=== PATIENT | female | born 1975 | race Native Hawaiian/Other Pacific Islander ===

== ENCOUNTER 2016-09-26 21:39 | Inpatient (IN) | payer MEDICAID ==
[2016-09-26] MEDS ORDERED: SUBLIMAZE IV PRN (22:21)
[2016-09-26] MEDS ORDERED: CERVIDIL VG ONE (22:21)
[2016-09-26 22:50] LABS: Hematocrit 34.3 % (30.3-42.9); Hemoglobin 11.3 gm/dl (10.1-14.3); Mean Corpuscular HGB Conc 33 % (30-34); Mean Corpuscular Volume 76 fl (79-97); Platelet Count 184 K/mm3 (140-440); Red Blood Count 4.52 M/mm3 (3.65-5.03); Red Cell Distribution Width 17.4 % (13.2-15.2); White Blood Count 10.2 K/mm3 (4.5-11.0)
[2016-09-26 22:56] LABS: Mean Corpuscular Hemoglobin 25 pg (28-32)
[2016-09-26] MEDS: LACTATED RINGERS 1,000 ML IV SCH (22:58)
[2016-09-27] MEDS: LACTATED RINGERS 1,000 ML IV SCH ×2 (03:04→07:50)
[2016-09-27] MEDS ORDERED: PITOCin/NS 30 UNIT/500ML 30 UNITS/500 ML BAG IV ONE (03:10)
[2016-09-27] MEDS ORDERED: PITOCin 20 UNIT in NACL 0.9% 1000 ML 1,000 ML IV SCH (04:00)
--- NOTE | 2016-09-27 08:36 | History and Physical Report ---
History of Present Illness Date of examination: 09/27/16 Date of admission: 09/26/16 21:39 History of present illness: 41 yo LMP EDC 09/17/16 @ 41.3 weeks gestation, admitted for induction secondary to post dates. Second trimeter entry into care at 19 weeks gestation. course complicated by second trimester vaginal bleeding. Fundal placenta documented. AMA with [facility] comang't and NL NIPT and +CT with treatment and negative SHARON. GBS status unknown. Will request and treat as needed. 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 Family/Genetic History: none Social history: no significant social history - Obstetrical History Expected Date of Delivery: 09/17/16 Actual Gestation: 41 Week(s) 3 Day(s) : 6 Para: 4 Hx # Term Pregnancies: 4 Spontaneous Abortions: 1 (ectopic) Number of Living Children: 4 Medications and Allergies Allergies Allergy/AdvReac Type Severity Reaction Status Date / Time No Known Allergies Allergy Verified 06/22/16 14:40 Home Medications Medication Instructions Recorded Confirmed Last Taken Type No Known Home Medications [No 09/26/16 09/26/16 Unknown History Reported Home Medications] Active Meds: Active Medications Fentanyl (Sublimaze) 100 mcg IV Q2H PRN PRN Reason: Labor Pain Lactated Ringer's (Lactated Ringers) 1,000 mls @ 125 mls/hr IV DIRECT CATINA Last Admin: 09/27/16 07:50 Dose: 125 mls/hr Oxytocin 20 unit/ Sodium (Chloride) 1,002 mls @ 0 mls/hr IV DIRECT CATINA PRN Reason: As Directed Oxytocin/Sodium Chloride (Pitocin/Ns 30 Unit/500ml) 30 units in 500 mls @ 2 mls /hr IV TITR CATINA PRN Reason: Protocol Review of Systems All systems: negative Eyes: deferred Ears, nose, mouth and throat: deferred Breasts: deferred Genitourinary: normal appearance Rectal Exam: deferred Integumentary: deferred - Vital Signs Vital signs: Vital Signs Pulse BP Pulse Ox 87 123/66 96 09/26/16 22:14 09/26/16 22:14 09/26/16 22:14 Temp Pulse Resp BP Pulse Ox 96.8 F L 100 H 16 103/59 99 09/27/16 07:04 09/27/16 08:22 09/27/16 07:04 09/27/16 07:19 09/27/16 08:22 - Physical Exam Breasts: Positive: deferred Cardiovascular: Regular rate Abdomen: Positive: normal appearance, soft Genitourinary (Female): Positive: normal external genitalia, normal perenium, perineal/vulvar lesions Vulva: both: normal Vagina: Positive: normal moisture - Obstetrical FHR: category 1 Uterine Contraction Monitor Mode: External Cervical Dilatation: 3 Cervical Effacement Percentage: 80 station: -3 Uterine Contraction Frequency (min): 1-3 Uterine Contraction Duration: 40-60 Uterine Contraction Pattern: Regular Uterine Tone Measurement Phase: Resting Uterine Contraction Intensity: Moderate Results Result Diagrams: 09/26/16 22:35 Abnormal lab results 09/26/16 Range/Units 22:35 MCV 76 L (79-97) fl MCH 25 L (28-32) pg RDW 17.4 H (13.2-15.2) % All other labs normal. Assessment and Plan O: EFW: 9lbs A: IUP at 41.3 weeks gestation Latent labor Unknown GBS status Postdates induction P: Obtain GBS status Active richie't
[2016-09-27] MEDS ORDERED: LACTATED RINGERS 1,000 ML IV SCH (09:00)
[2016-09-27] MEDS: PITOCin/NS 30 UNIT/500ML 30 UNITS/500 ML BAG IV SCH ×3 (09:01→12:13)
[2016-09-27] MEDS ORDERED: PITOCin/NS 20 UNIT/1000ML DRIP 20,000 MILLIUNITS/1,000 ML BAG IV ONE (09:05)
[2016-09-27] MEDS ORDERED: STADOL IV PRN (09:30)
[2016-09-27] MEDS ORDERED: PITOCin/NS 20 UNIT/1000ML DRIP 20 UNITS/1,000 ML BAG IV SCH (09:30)
[2016-09-27] MEDS ORDERED: XYLOCAINE 2% INFILTRATI ONE (09:30)
[2016-09-27] MEDS ORDERED: ePHEDrine SULFATE IV PRN (09:30)
[2016-09-27] MEDS ORDERED: BRETHINE IVP PRN (09:30)
[2016-09-27] MEDS ORDERED: BRETHINE SUB-Q PRN (09:30)
[2016-09-27] MEDS ORDERED: MINERAL OIL PO PRN (10:00)
[2016-09-27] MEDS ORDERED: POLYCILLIN/NS 2 GM/100 ML 2 GM/100 ML BAG IV ONE (10:00)
[2016-09-27] MEDS ORDERED: fentaNYL-BUPIV 2 MCG/ML-0.125% 200 MCG/100 ML BAG EPIDURAL ONE (11:14)
[2016-09-27] MEDS ORDERED: NARCAN 2 MG/2 ML IV PRN (12:04)
--- NOTE | 2016-09-27 12:04 | Anesthesia Consultation ---
Anesthesia Consult and Med Hx Date of service: 09/27/16 - Airway Anesthetic Teeth Evaluation: Good ROM Head & Neck: Adequate Mental/Hyoid Distance: Adequate Mallampati Class: Class II Intubation Access Assessment: Probably Good - Pre-Operative Health Status ASA Pre-Surgery Classification: ASA2, Emergency Proposed Anesthetic Plan: Epidural, Spinal - Pulmonary Hx Asthma: No COPD: No Hx Pneumonia: No - Cardiovascular System Hx Hypertension: No - Central Nervous System Hx Seizures: No Hx Psychiatric Problems: No - Endocrine Hx Renal Disease: No Hx End Stage Renal Disease: No Hx Hypothyroidism: No Hx Hyperthyroidism: No - Hematic Hx Anemia: No Hx Sickle Cell Disease: No - Other Systems Hx Alcohol Use: No
[2016-09-27] MEDS ORDERED: fentaNYL-BUPIV 2 MCG/ML-0.125% 200 MCG/100 ML BAG EPIDURAL SCH (13:00)
[2016-09-27] MEDS ORDERED: POLYCILLIN/NS 1 GM/50 ML 1 GM/50 ML BAG IV SCH (14:00)
--- NOTE | 2016-09-27 14:06 | Procedure Note ---
OB Delivery Note - Delivery Date of Delivery: 09/27/16 (8lb male @ 1349) Surgeon: ROSANA VICENTE Estimated blood loss: <100cc - Vaginal Delivery presentation: vertex Delivery position: OA Intrapartum events: none, mult.variable deceleratio Delivery induction: cervidil Delivery augmentation: rupture of membranes, pitocin Delivery monitor: external FHT, internal FHT Route of delivery: Delivery placenta: spontaneous Delivery cord: 3 umbilical vessels Episiotomy: none Delivery laceration: other (vaginal skid camilla, pressure applied for hemostatis) Anesthesia: epidural - Infant A at 1 minute: 8 at 5 minutes: 9 Gender: Male (Progressed rapidly for of viable male. Infant stimulated to cry, bulb suctioned, place skin to skin. NICU @ for varible decels. [address] Pitocin off. on stand by for delivery. Spont. placenta. Cord blood collected. Laceration as noted. Mother and stable and bonding.)
[2016-09-27] MEDS ORDERED: BENADRYL PO PRN (14:08)
[2016-09-27] MEDS ORDERED: LANSINOH TP PRN (14:08)
[2016-09-27] MEDS ORDERED: PHENERGAN PR PRN (14:08)
[2016-09-27] MEDS ORDERED: TYLENOL PO PRN (14:08)
[2016-09-27] MEDS ORDERED: DULCOLAX PR PRN (14:08)
[2016-09-27] MEDS ORDERED: NORCO 5/325 PO PRN (14:08)
[2016-09-27] MEDS ORDERED: TUCKS PAD TP PRN (14:08)
[2016-09-27] MEDS ORDERED: ZOFRAN IV PRN (14:08)
[2016-09-27] MEDS ORDERED: DERMOPLAST TP PRN (14:08)
[2016-09-27] MEDS ORDERED: MILK OF MAGNESIA PO PRN (14:08)
[2016-09-27] MEDS ORDERED: SODIUM CHLORIDE FLUSH SYRINGE 10 ML IV NR (15:00)
[2016-09-27] MEDS ORDERED: MOTRIN PO SCH (15:00)
[2016-09-27] MEDS: MOTRIN PO SCH (23:48)
[2016-09-28 03:04] LABS: Hematocrit 30.6 % (30.3-42.9)
[2016-09-28] MEDS: MOTRIN PO SCH ×2 (05:41→12:48)
[2016-09-28] MEDS ORDERED: BOOSTRIX IM ONE (06:00)
[2016-09-28] MEDS ORDERED: M-M-R II VACCINE SUB-Q ONE (06:00)
[2016-09-28] MEDS: PRENATAL VITAMIN PO SCH (11:00)
--- NOTE | 2016-09-28 12:26 | Progress Note ---
Assessment and Plan A: PPD#1 s/p P: Routine care. Discharge today per pt request. Subjective - Subjective Date of service: 09/28/16 Principal diagnosis: s/p at term Patient reports: appetite normal, voiding normally, ambulating normally : doing well, bottle feeding Objective - Vital Signs Latest vital signs: Vital Signs Temp Pulse Pulse Resp BP BP Pulse Ox 09/28/16 08:10 98.4 F 62 20 95/47 09/28/16 00:35 98.3 F 87 18 99/61 09/27/16 21:20 99.3 F 94 H 18 101/69 09/27/16 16:00 98.5 F 81 16 120/72 09/27/16 15:18 86 99/57 09/27/16 15:13 86 95/53 09/27/16 15:08 97 H 111/55 09/27/16 15:02 85 121/61 09/27/16 14:58 90 118/60 09/27/16 14:53 100 H 113/55 09/27/16 14:47 93 H 115/61 09/27/16 14:42 88 116/62 09/27/16 14:38 85 114/58 09/27/16 14:33 94 H 123/56 09/27/16 14:28 91 H 122/52 09/27/16 14:23 87 127/53 09/27/16 14:18 88 113/61 09/27/16 14:13 95 H 103/59 09/27/16 14:08 98 H 129/56 09/27/16 14:03 103 H 106/56 09/27/16 13:58 100 H 115/54 09/27/16 13:53 103 H 109/51 09/27/16 13:51 108 H 135/62 09/27/16 13:47 95 H 71 L 09/27/16 13:45 139 H 139/67 09/27/16 13:42 121 H 100 09/27/16 13:39 109 H 84 09/27/16 13:37 107 H 135/79 09/27/16 13:36 105 H 100 09/27/16 13:33 105 H 132/76 09/27/16 13:31 105 H 100 09/27/16 13:28 88 119/73 09/27/16 13:26 88 100 09/27/16 13:22 93 H 114/68 09/27/16 13:21 85 100 09/27/16 13:17 87 112/71 09/27/16 13:16 93 H 100 09/27/16 13:13 100 H 107/68 09/27/16 13:11 89 100 09/27/16 13:08 90 115/66 09/27/16 13:06 89 100 09/27/16 13:02 100 H 107/71 09/27/16 13:01 91 H 100 09/27/16 12:57 96 H 115/73 09/27/16 12:56 95 H 100 09/27/16 12:52 93 H 118/74 09/27/16 12:51 98 H 100 09/27/16 12:47 107 H 113/75 09/27/16 12:46 97 H 100 09/27/16 12:43 97 H 111/70 09/27/16 12:41 101 H 100 09/27/16 12:38 93 H 120/66 09/27/16 12:36 95 H 100 09/27/16 12:32 99 H 111/63 09/27/16 12:31 96 H 96 09/27/16 12:27 83 114/60 09/27/16 12:25 91 H 96 09/27/16 12:23 90 118/60 09/27/16 12:20 91 H 98 09/27/16 12:18 88 122/72 09/27/16 12:16 94 H 94 09/27/16 12:14 99 H 112/65 94 Intake and Output 09/27/16 09/28/16 09/28/16 22:59 06:59 14:59 Intake Total 240 360 Output Total 400 Balance -160 360 Intake: Oral 240 360 Output: Urine 400 Void 400 Other: Total, Intake Amount 240 120 Total, Output Amount 400 # Voids Void 1 1 - Exam Breasts: Present: deferred Cardiovascular: Present: Regular rate Lungs: Present: Clear to auscultation Abdomen: Present: soft Extremities: Present: normal - Labs Labs: Abnormal lab results 09/28/16 Range/Units 02:39 Hgb 10.0 L (10.1-14.3) gm/dl
--- NOTE | 2016-09-28 12:42 | Discharge Summary ---
Providers - Providers Date of Admission: 09/26/16 21:39 Date of discharge: 09/28/16 Attending physician: VERÓNICA MI MD Primary care physician: VERÓNICA MI MD Hospitalization Reason for admission: induction of labor Delivery: Procedure details: Spontaneous vaginal delivery; Please see delivery note. Episiotomy: none Laceration: none Other procedures: none complications: none Discharge diagnosis: IUP at term delivered [place] baby: male Hospital course: Pt underwent induction of labor and spontaneous vaginal delivery which she tolerated well. She met discharge criteria on PPD#1. Condition at discharge: Stable Disposition: DISCHARGED TO HOME OR SELFCARE - Discharge Diagnoses (1) Term of male Status: Acute (2) Obesity Status: Acute Qualifiers: Obesity type: due to excess calories Obesity severity: non-morbid Qualified Code(s): E66.09 - Other obesity due to excess calories (3) Anemia affecting Status: Acute Plan - Discharge Medications Prescriptions: Ferrous Sulfate [Feosol 325 MG tab] 325 mg PO BID #60 tablet HYDROcodone/APAP 5-325 [Plains 5/325] 1 each PO Q6HR PRN #30 tablet PRN Reason: Pain Ibuprofen [Motrin] 800 mg PO Q8HR PRN #30 tablet PRN Reason: Pain Vit-Fe Fumar-FA [ Vitamin] 1 tab PO QDAY #30 tablet - Provider Discharge Summary Activity: routine, no sex for 6 weeks, no heavy lifting 4 weeks, no strenuous exercise Diet: routine Instructions: routine Additional instructions: [] Smoking cessation referral if applicable(refer to patient education folder for contact #) [] Refer to [facility] Booklet Call your doctor immediately for: * Fever > 100.5 * Heavy vaginal bleeding ( >1 pad per hour) * Severe persistent headache * Shortness of breath * Reddened, hot, painful area to leg or breast * Drainage or odor from incision. * Keep incision clean and dry at all times and follow doctor's instructions regarding bathing/showering - Follow up plan Follow up: ROSANA VICENTE CNM [Advanced Practice Nurse] - 10/25/16 ( exam)
--- NOTE | 2016-09-28 14:09 | Progress Note ---
Subjective Date of service: 09/28/16 Principal diagnosis: s/p at term Interval history: 1st POD after normal vaginal delivery Patient is in the bed, comfortable. Pain is well controlled with pain meds. Ambulated well. No residual neurological deficit. No anesthesia complications Objective - Constitutional Vitals: Vital Signs - 12hr 09/28/16 08:10 Temperature 98.4 F Pulse Rate [ 62 Right From Monitor] Respiratory 20 Rate Blood Pressure 95/47 [Right Arm] - Labs CBC & Chem 7: 09/28/16 02:39 Labs: Abnormal lab results 09/28/16 Range/Units 02:39 Hgb 10.0 L (10.1-14.3) gm/dl
[2016-09-29] MEDS: MOTRIN PO SCH ×3 (06:00→12:35)
[2016-09-29] MEDS: PRENATAL VITAMIN PO SCH (10:11)
[2016-09-29 13:45] VITALS: BP 116/66
== END 2016-09-29 14:00 | disposition home or self-care (01) | DRG 775 ==
LOC: LD 21:39 → OB 09-27 16:03
PROVIDERS: ADMIT Obstetrics & Gynecology; ATTEND Obstetrics & Gynecology
PROC: 10E0XZZ Delivery of Products of Conception, External Approach (ICD-10-PCS; principal; 2016-09-26)
PROC: 00HU33Z Insertion of Infusion Device into Spinal Canal, Percutaneous Approach (ICD-10-PCS; 2016-09-26)
PROC: 3E0R3CZ (ICD-10-PCS; 2016-09-26)
PROC: 3E0P7GC Introduction of Other Therapeutic Substance into Female Reproductive, Via Natural or Artificial Opening (ICD-10-PCS; 2016-09-26)
DX: O48.0 Post-term pregnancy (principal); O76 Abnormality in fetal heart rate and rhythm complicating labor and delivery; O99.214 Obesity complicating childbirth; O99.02 Anemia complicating childbirth; D64.9 Anemia, unspecified; O71.89 Other specified obstetric trauma; Z3A.41 41 weeks gestation of pregnancy; Z37.0 Single live birth
CPT/HCPCS: 36415; 59200; 85014; 85018; 85027; 86850; 86900; 86901; 90471; 90715; J0595; J2590; J3010; J7120